=== PATIENT | female | born 1950 | race Caucasian/White ===

== ENCOUNTER 2016-11-28 11:37 | Day surgery (SDC) | payer OTHER ==
[2016-11-24 17:02] LABS: HEMATOCRIT 40.5 % (36.0-48.0); HEMOGLOBIN 13.3 g/dL (12.0-16.0)
[2016-11-24 17:05] LABS: PROTIME (NOT ORD) 12.9 SEC (12.0-14.5)
[2016-11-24 17:38] LABS: BUN (BLOOD UREA NITROGEN) 11 MG/DL (6-23); CHLORIDE, SERUM 105 MMOL/L (96-112); CO2 (CARBON DIOXIDE) 26 MMOL/L (24-34); CREATININE 0.56 MG/DL (0.55-1.02); GFR AFRICAN AMERICAN 111 ML/MIN (>=60); GFR NON AFRICAN AMERICAN 96 ML/MIN (>=60); GLUCOSE, SERUM 82 MG/DL (60-99); POTASSIUM, SERUM 4.6 MMOL/L (3.5-5.3); SODIUM, SERUM 142 MMOL/L (135-148)
--- NOTE | ~2016-11-28 | OP ---
Record Of Operation [facility] [address] [place]. 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 PROCEDURE: Left submandibular gland excision. SURGEON: Lane Landin M.D. BAKER BREAD: Dr. Barajas. ANESTHESIA: General endotracheal. ESTIMATED BLOOD LOSS: 50 mL. INTRAOPERATIVE FLUIDS: 800 mL of crystalloid. INTRAOPERATIVE FINDINGS: Firm tumor encompassing the majority of the left submandibular gland. OPERATIVE PROCEDURE: The patient was identified in the holding and transported to the operating room. In the operating room, the patient was placed on the operating room table in the supine position. Following induction of anesthesia, the patient was intubated without difficulty. A proposed incision was diagrammed in a left neck skin crease in a horizontal fashion. The patient did have a more prominent skin crease inferiorly; however, given the distance from the body of the mandible, I opted to use the more superior, less discrete crease. This area was then injected with 1% lidocaine with 1:100,000 epinephrine. Electrodes were placed for use of the NIM-2 stimulator. The patient was subsequently prepped and draped in a sterile fashion. An incision was created through the aforementioned area of the neck. The incision was carried to the level of the platysma muscle. Hemostasis was achieved with the use of the bipolar cautery. The platysma muscle was then sharply incised. Superior and inferior subplatysmal flaps were developed. Superiorly, the subplatysmal flap was carried to within 1 cm of the body of the mandible. The fascia of the submandibular gland was then incised inferiorly along the lower edge of the gland. The fascia was then elevated from the gland as the dissection was carried superiorly. Posteriorly, the posterior facial vein was identified and dissected free from the submandibular gland. This structure was preserved throughout the course of the dissection. The submandibular gland was then mobilized along its medial aspect to increase mobilization of the gland. With this mobilization, I was able to retract the gland inferiorly to continue dissection along the upper portion of the gland. At this point, the lateral portion of the facial artery was suture ligated and divided. Retracting the omohyoid anteriorly and retracting the gland inferiorly, the lingual nerve was identified. The submandibular ganglion was identified and suture ligated with care taken to avoid injury to the lingual nerve. The submandibular gland was then retracted further inferiorly Record Of Operation [place] [id number] [facility] [place]. [address] NAME: NINA MERCADO : 46 STATUS : [facility]#: [id number] AGE: 66 ADM/REG DATE : 11/28/16 MR#: [id number] REPORT SERV DATE: 11/29/16 DICTATED BY: LANE LANDIN DATE: 11/28/16 REPORT STATUS : Draft TRANSCRIBED BY: MODL DATE: 11/28/16 identifying the deeper branch of the facial artery which was once again suture ligated. The submandibular duct was then divided and the distal end was ligated with a silk suture. The remaining soft tissue attachments were divided as the gland was removed. The tissue was sent to surgical pathology for histologic evaluation. Hemostasis was achieved with the use of the bipolar cautery. A #10 round NATHANIEL drain was placed to the neck. The platysma muscle was then reapproximated using interrupted 3-0 Vicryl suture. A running 5-0 Prolene suture was placed in a subcuticular fashion for skin closure. Steri-Strips were applied to the wound. The patient was subsequently awakened from anesthesia, extubated in the operating room, and transported to recovery room in good condition. The patient tolerated the procedure well. There were no apparent complications. Specimens included left submandibular gland. TF/DEV Lane Landin M.D. / [id number] CC: Nadiya Denny D.O. F.A.C.P.
[~2016-11-28 11:37] MED LIST: CITRACAL PO
== END 2016-11-28 20:14 | disposition home or self-care (01) ==
LOC: SDC 11:37
PROVIDERS: Otolaryngology
PROC: 0NBV0ZZ Excision of Left Mandible, Open Approach (ICD-10-PCS; principal; 2016-11-28 13:15)
DX: C08.0 Malignant neoplasm of submandibular gland (principal); K58.9 Irritable bowel syndrome, unspecified; M32.9 Systemic lupus erythematosus, unspecified; G47.30 Sleep apnea, unspecified; M85.80 Other specified disorders of bone density and structure, unspecified site; D64.9 Anemia, unspecified; Z98.890 Other specified postprocedural states; Z88.8 Allergy status to other drugs, medicaments and biological substances
CPT/HCPCS: 36415; 80048; 85014; 85018; 85610; 88307; 93005; A9270-GY; J0690; J2250; J2370; J2405; J2710; J3010